=== PATIENT | female | born 2000 | race Two or more races ===

== ENCOUNTER 2023-05-30 13:32 | Inpatient (IN) | payer OTHER ==
[~2023-05-30 13:32] MED LIST: Iopamidol-370 76% 500 ML MDV (1 ML CHARGE) ONE
[2023-05-30] MEDS ORDERED: Ondansetron PF 4 MG/2 ML Vial ONE (13:41)
[2023-05-30] MEDS ORDERED: Morphine 4 MG/ML VIAL ONE (13:41)
[2023-05-30 14:26] LABS: BHCG - Serum Negative (NEGATIVE); Pregs Control Background? CLEAR/WHITE (CLR/WHITE); Pregs Control Bar Appear? YES (CONTROL BAR)
[2023-05-30 14:29] LABS: ALT (SGPT) 18 U/L (8-55); AST (SGOT) 31 U/L (5-34); Albumin 4.1 g/dL (3.5-5.0); Alkaline Phosphatase 67 U/L (40-110); Anion Gap 13 mmol/L (10-20); BUN (Urea Nitrogen) 11 mg/dL (7.0-18.7); Bilirubin, Total 0.3 mg/dL (0.2-1.2); Calc. Creatinine Clearance 0 mL/min (70-130); Calcium 9.5 mg/dL (7.8-10.44); Carbon Dioxide 18 mmol/L (22-29); Chloride 109 mmol/L (98-107); Estimated GFR 112; Globulin 3.8 g/dL (2.4-3.5); Glucose 102 mg/dL (70-105); Potassium 3.9 mmol/L (3.5-5.1); Protein, Total 7.9 g/dL (6.0-8.3); Sodium 136 mmol/L (136-145)
[2023-05-30 14:48] LABS: #Monocytes 0.8 thou/uL (0.11-0.59); #Neutrophils 10.3 thou/uL (1.40-6.50); %Basophils 0.2 % (0.0-1.0); %Eosinophils 0.3 % (0.0-10.0); %Lymphocytes 6.7 % (21.0-51.0); %Monocytes 6.6 % (0.0-10.0); %Neutrophils 85.7 % (42.0-75.0); Hematocrit 41.1 % (36.0-47.0); Hemoglobin 13.5 g/dL (12.0-16.0); Mean Corpuscular HGB CONC 32.8 g/dL (32.0-36.0); Mean Corpuscular Hemoglobin 30.2 pg (27.0-31.0); Mean Corpuscular Volume 91.9 fl (78.0-98.0); Mean Platelet Volume 9.8 fL (7.4-10.4); Platelet Count 262 10x3/uL (130-400); Red Blood Cell (RBC) Count 4.47 mill/uL (4.20-5.40)
[2023-05-30] MEDS ORDERED: TETANUS, DIPHTHERIA TOX,ADULT (TDVAX) 0.5 ML VIAL IM ONE (16:37)
[2023-05-30] MEDS ORDERED: hydrALAZINE 20 MG/ML VIAL SLOW IVP PRN (16:37)
[2023-05-30] MEDS ORDERED: Dextrose 50% Abboject 50 ML SYRINGE SLOW IVP PRN (16:37)
[2023-05-30] MEDS ORDERED: Ondansetron ODT 4 MG TAB PO PRN (16:37)
[2023-05-30] MEDS ORDERED: Ipratropium/Albuterol 3 ML NEB NEB PRN (16:37)
[2023-05-30] MEDS ORDERED: Dextrose 5% in Water 1,000 ML IV PRN (16:37)
[2023-05-30] MEDS ORDERED: Glucagon 1 MG/ML KIT IM PRN (16:37)
[2023-05-30] MEDS ORDERED: Morphine 2 MG/ML VIAL SLOW IVP PRN (16:37)
[2023-05-30 16:38] LABS: PTT 52.7 sec (22.9-36.1)
[2023-05-30 16:40] LABS: INR-International Normal Ratio 5.8; Prothrombin Time 55.2 sec (12.0-14.7)
[2023-05-30 16:49] VITALS: BMI 45.7
[2023-05-30] MEDS: Sodium Chloride 0.9% 1,000 ML IV SCH ×2 (17:20→22:24)
[2023-05-30] MEDS: Acetaminophen 500 MG TAB PO SCH (18:03)
[2023-05-30] MEDS: Famotidine 20 MG TAB PO SCH (21:14)
[2023-05-31] MEDS: Acetaminophen 500 MG TAB PO SCH ×4 (00:51→17:51)
[2023-05-31] MEDS: Sodium Chloride 0.9% 1,000 ML IV SCH ×2 (03:17→06:49)
[2023-05-31] MEDS: traMADol HCl 50 MG TAB PO PRN ×3 (05:06→20:27)
[2023-05-31 06:29] LABS: #Eosinphils 0.1 thou/uL (0.0-0.7); #Monocytes 0.6 thou/uL (0.11-0.59); %Basophils 0.3 % (0.0-1.0); %Eosinophils 1.6 % (0.0-10.0); %Lymphocytes 24.4 % (21.0-51.0); %Monocytes 9.5 % (0.0-10.0); Hematocrit 39.2 % (36.0-47.0); Hemoglobin 13.2 g/dL (12.0-16.0); Mean Corpuscular HGB CONC 33.7 g/dL (32.0-36.0); Mean Corpuscular Hemoglobin 30.8 pg (27.0-31.0); Mean Corpuscular Volume 91.4 fl (78.0-98.0); Platelet Count 263 10x3/uL (130-400); RBC Distribution Width 12.1 % (11.5-14.5); Red Blood Cell (RBC) Count 4.29 mill/uL (4.20-5.40); White Blood Cell (WBC) Count 6.2 10x3/uL (4.8-10.8)
[2023-05-31 07:33] LABS: Chloride 108 mmol/L (98-107); Potassium 3.4 mmol/L (3.5-5.1); Sodium 137 mmol/L (136-145)
[2023-05-31 07:34] LABS: Calcium 8.2 mg/dL (7.8-10.44); Glucose 75 mg/dL (70-105)
[2023-05-31 07:36] LABS: Anion Gap 13 mmol/L (10-20)
[2023-05-31 07:38] LABS: BUN (Urea Nitrogen) 8 mg/dL (7.0-18.7); Calc. Creatinine Clearance 249 mL/min (70-130); Estimated GFR 129
[2023-05-31 08:41] LABS: Carbon Dioxide 21 mmol/L (22-29)
[2023-05-31] MEDS: Famotidine 20 MG TAB PO SCH ×2 (09:26→20:25)
[2023-05-31 09:44] LABS: INR-International Normal Ratio 1.1; Prothrombin Time 14.3 sec (12.0-14.7)
[2023-06-01] MEDS: Acetaminophen 500 MG TAB PO SCH ×5 (00:17→23:42)
[2023-06-01 05:32] LABS: #Eosinphils 0.2 thou/uL (0.0-0.7); #Monocytes 0.5 thou/uL (0.11-0.59); #Neutrophils 3.5 thou/uL (1.40-6.50); %Basophils 0.2 % (0.0-1.0); %Eosinophils 2.7 % (0.0-10.0); %Lymphocytes 28.2 % (21.0-51.0); %Monocytes 8.2 % (0.0-10.0); %Neutrophils 60.5 % (42.0-75.0); Hematocrit 35.9 % (36.0-47.0); Hemoglobin 11.9 g/dL (12.0-16.0); Mean Corpuscular HGB CONC 33.1 g/dL (32.0-36.0); Mean Corpuscular Hemoglobin 30.6 pg (27.0-31.0); Mean Corpuscular Volume 92.3 fl (78.0-98.0); Mean Platelet Volume 9.9 fL (7.4-10.4); Platelet Count 252 10x3/uL (130-400); RBC Distribution Width 12.3 % (11.5-14.5); Red Blood Cell (RBC) Count 3.89 mill/uL (4.20-5.40); White Blood Cell (WBC) Count 5.9 10x3/uL (4.8-10.8)
[2023-06-01] MEDS: Senokot S 8.6-50 MG TAB PO SCH ×2 (10:07→21:00)
[2023-06-01] MEDS: traMADol HCl 50 MG TAB PO PRN ×2 (10:07→21:11)
[2023-06-01] MEDS: Famotidine 20 MG TAB PO SCH ×2 (10:07→21:00)
[2023-06-01] MEDS: Polyethylene Glycol 3350 17 GM Packet PO SCH (10:07)
[2023-06-02] MEDS: Acetaminophen 500 MG TAB PO SCH ×2 (05:29→12:42)
[2023-06-02 06:02] LABS: #Eosinphils 0.2 thou/uL (0.0-0.7); #Monocytes 0.5 thou/uL (0.11-0.59); #Neutrophils 3.4 thou/uL (1.40-6.50); %Basophils 0.4 % (0.0-1.0); %Monocytes 8.1 % (0.0-10.0); %Neutrophils 59.4 % (42.0-75.0); Hematocrit 34.2 % (36.0-47.0); Hemoglobin 11.3 g/dL (12.0-16.0); Mean Corpuscular Hemoglobin 30.7 pg (27.0-31.0); Mean Corpuscular Volume 92.9 fl (78.0-98.0); Mean Platelet Volume 9.9 fL (7.4-10.4); Platelet Count 257 10x3/uL (130-400); RBC Distribution Width 12.2 % (11.5-14.5); Red Blood Cell (RBC) Count 3.68 mill/uL (4.20-5.40); White Blood Cell (WBC) Count 5.7 10x3/uL (4.8-10.8)
[2023-06-02] MEDS ORDERED: Potassium Chloride 20 MEQ TAB PO SCH (08:00)
[2023-06-02] MEDS: Senokot S 8.6-50 MG TAB PO SCH (09:17)
[2023-06-02] MEDS: Polyethylene Glycol 3350 17 GM Packet PO SCH (09:17)
[2023-06-02] MEDS: Famotidine 20 MG TAB PO SCH (09:17)
[2023-06-02] MEDS: traMADol HCl 50 MG TAB PO PRN (09:20)
[2023-06-02 12:57] VITALS: BP 120/75; TEMP 98.6
== END 2023-06-02 15:10 | disposition home or self-care (01) | DRG 552 ==
LOC: ERS 13:32 → SURG A 14:56 → EDBD 14:56 → SURG A 16:22
PROVIDERS: ADMIT Surgery; ATTEND Surgery
DX: S32.10XA Unspecified fracture of sacrum, initial encounter for closed fracture (principal); S33.4XXA Traumatic rupture of symphysis pubis, initial encounter; S90.511A Abrasion, right ankle, initial encounter; V49.9XXA Car occupant (driver) (passenger) injured in unspecified traffic accident, initial encounter
CPT/HCPCS: 36415; 70450; 71045; 71260; 72125; 72170; 74177; 80048; 80053; 84703; 85025; 85610; 85730; 96374; 96375; G0390; J2270; J2405; J7050; Q9967